=== PATIENT | male | born 1945 | race Caucasian/White ===

== ENCOUNTER 2024-10-01 21:52 | Emergency (ER) | payer MEDICARE, SELFPAY ==
[2024-10-01 22:00] VITALS: BP 181/99
[2024-10-01 22:21] LABS: Urine Albumin 4+ (Neg - Trace); Urine Bilirubin Negative (Negative); Urine Character Slightly Cloudy (Clear); Urine Color Red; Urine Glucose Negative (Negative); Urine Ketone Negative (Negative); Urine Leukocyte 1+ (Negative); Urine Nitrite Negative (Negative); Urine Occult Blood 4+ (Negative); Urine Urobilinogen Negative (Neg - 1+)
[2024-10-01 22:25] LABS: % Basophils 0.6 % (0-2); % Eosinophils 4.5 % (0-6); % Immature Granulocytes 0.2 % (0-0.5); % Lymphocytes 26.2 % (20.5-51.1); % Monocytes 10.8 % (1.7-9.3); % Neutrophils 57.7 % (42.2-75.2); Absolute Basophils 0.1 10^3/uL (0-0.2); Absolute Eosinophils 0.6 10^3/uL (0-0.7); Absolute Lymphocytes 3.2 10^3/uL (1.2-3.4); Absolute Monocytes 1.3 10^3/uL (0.1-0.6); Absolute Neutrophils 7.1 10^3/uL (1.4-6.5); Hemoglobin 13.9 g/dL (13.0-18.0); Mean Corp Hgb Conc. 33.9 g/dL (33.0-37.0); Mean Corpuscular Hgb 31.2 pg (27.0-31.0); Mean Corpuscular Volume 91.9 fL (80.0-94.0); Mean Platelet Volume 9.4 fL (7.4-10.4); Nucleated Red Blood Cells % 0 % (-); Platelet Count 297 10^3/uL (130-400); Red Blood Cell Count 4.46 10^6/uL (4.70-6.10); White Blood Cell Count 12.3 10^3/uL (4.8-10.8)
[2024-10-01 22:27] LABS: Urine Red Blood Cell >100 /HPF (0-2); Urine Squamous Cell 0-2 /LPF (Few)
[2024-10-01 22:28] LABS: Urine Bacteria Few (Negative); Urine White Cell 16-20 /HPF (0-5)
[2024-10-01 22:35] LABS: ALT (SGPT) 23 U/L (0-50); AST (SGOT) 22 U/L (17-59); Albumin 4.8 g/dl (3.5-5.0); Alkaline Phosphatase 72 U/L (38-126); Blood Urea Nitrogen 17 mg/dl (9-20); Calcium 9.4 mg/dl (8.4-10.2); Carbon Dioxide 22 mmol/L (22-30); Chloride 105 mmol/L (98-107); Glucose 99 mg/dl (70-99); Potassium 4.2 mmol/L (3.5-5.1); Sodium 138 mmol/L (135-145); Total Bilirubin 0.7 mg/dl (0.2-1.3); Total Protein 7.3 g/dl (6.3-8.2); eGFR > 60.00
[2024-10-02] MEDS: KEFLEX 500 MG PO (00:58)
--- NOTE | 2024-10-02 01:03 | ED.GENMED ---
History of Present Illness
General
Chief Complaint: Male Genito-Urinary Symptoms
Source: patient
Exam Limitations: none
Time Seen by Provider: 10/02/24 00:52
Nursing documentation reviewed up to this point in time: agreed with
History of Present Illness
History of Present Illness:
79-year-old male presenting to the emergency department with concerns of hematuria. There are some clots today otherwise was slightly red. Able to urinate here without issues. No pain point. Patient is requesting to leave prior to further
assessment by me. It was suggested that he potentially should start an antibiotic due to the white blood cells and bacteria in his urinalysis. He claims that he can follow-up closely urology. He was advised to return for any worsening symptoms.
Past History
Past History
ED Past Medical History: GERD and Hypercholesterolemia
ED Past Surgical History: Orthopedic and Other (Hernia repair)
Social History
Tobacco: Former smoker
Alcohol: Occasional
Living: with family
Review of Systems
Review of Systems
Allergies reviewed?: Yes
All Other Systems: ROS reviewed and negative except as documented in HPI and ROS
Phy Exam
Physical Exam
Physical Exam:
GENERAL: Alert , in no apparent distress
EYE: pupils equal and reactive
NECK: Supple, no significant adenopathy.
ENT: o/p clr, mmm.
CARDIAC: Regular rate and rhythm .
LUNGS: Clear breath sounds bilaterally, no acute respiratory distress, no wheezes/rales/rhonchi
ABDOMEN: Soft, without focal tenderness, no r/g, no cvat
NEUROLOGICAL: Alert and oriented, no focal neuro deficits
SKIN: Warm and dry, skin intact.
MUSCULOSKELETAL: No edema, well perfused.
PSYCH: Normal and appropriate interaction.
Course
Orders/Labs/Results
Orders:
Orders
10/01/24 22:08
CMP [Comprehensive Metabolic Panel] Urgent
Complete Blood Count/With Diff Urgent
Urinalysis Reflex To Culture Urgent
Date Specimen was Collected: 10/01/24
Time Specimen was Collected: 22:04
Urine Microscopic Reflex Cult Urgent
Urine Culture Urgent
[place] Source: U
Specimen Description:
Date Specimen was Collected: 10/01/24
Time Specimen was Collected: 22:04
10/02/24 00:56
Cephalexin Monohydrate [Keflex] 500 mg .ROUTE .[facility]
10/02/24 00:57
Cephalexin Monohydrate [Keflex] 500 mg PO NOW STA
Abnormal Lab Results
10/01/24
22:08
WBC 12.3 H 10^3/uL
(4.8-10.8)
RBC 4.46 L 10^6/uL
(4.70-6.10)
MCH 31.2 H pg
(27.0-31.0)
Absolute Neuts (auto) 7.1 H 10^3/uL
(1.4-6.5)
Absolute Monos (auto) 1.3 H 10^3/uL
(0.1-0.6)
Monocytes % 10.8 H %
(1.7-9.3)
Ur Occult Blood Reflex 4+ A
(Negative)
Leukocyte Esterase Rfl 1+ A
(Negative)
Urine RBC >100 A /HPF
(0-2)
Urine WBC (Reflex) 16-20 A /HPF
(0-5)
Urine Bacteria (Reflex) Few A
(Negative)
Urine Albumin (Reflex) 4+ A
(Neg - Trace)
10/01/24 22:08
10/01/24 22:08
Vital Signs
Initial and Last Documented VS:
Initial Vital Signs
Temp Pulse Resp BP Pulse Ox
98.2 F 75 20 181/99 98
10/01/24 22:00 10/01/24 22:00 10/01/24 22:00 10/01/24 22:00 10/01/24 22:00
Last Documented Vital Signs
Temp Pulse Resp BP Pulse Ox
98.2 F 75 20 181/99 98
10/01/24 22:00 10/01/24 22:00 10/01/24 22:00 10/01/24 22:00 10/01/24 22:00
MDM/Problems Addressed
MDM/Problems Addressed:
79-year-old male presenting to the emergency department today with concerns of hematuria. Resolving while here able to urinate well. Did notice some clots earlier today. No ongoing pain. Requesting to leave at this point. I feel like this is
reasonable. Patient was started on antibiotic as patient is possible. Will follow-up closely with urology. Return precautions given.
*Critical Care Note
Total Time (30-74mins, 75-104mins- exclusive of procedures): Not Applicable
ED Attending Note
-
Portions of this chart may have been created with voice recognition software.� Occasional wrong word or��sound alike� substitutions may have occurred due to the inherent limitations of voice recognition software.
Discharge Plan
Departure
Patient Disposition: Home (Routine Discharge)
Date of Disposition: 10/02/24
Time of Disposition: 01:03
Patient with high blood pressure during this ER visit?: No
Condition: Good
Covid-19: Not Applicable
Discharge Problem:
Hematuria
Instructions: Blood in the Urine (Hematuria), Adult (DC)
Prescriptions:
New
cephalexin 500 mg capsule
500 mg PO BID 7 Days Qty: 14 0RF
No Action
ibuprofen 200 MG tablet
400 mg PO PRN PRN (Reason: pain)
mupirocin 1 APPLIC ointment
1 applic intranasal BID Qty: 1 0RF
Patient Comments:
patient applied today 06/03 at 9:30, has been applying bid since 05/31/19 in am
cannabidiol [Epidiolex] 1 UNIT solution
1 unit PO PRN PRN (Reason: pain)
omeprazole 20 MG capsule,delayed release(DR/EC)
20 mg PO DAILY
Melatonin 3 mg Tablet Tab
3 mg PO PRN PRN (Reason: Sleep)
sennosides [senna] 1 TABLET tablet
2 tab PO BID 0RF
acetaminophen 325 MG tablet
650 mg PO Q4HWA 0RF
aspirin 325 MG tablet
325 mg PO DAILY Qty: 30 0RF
Rx Instructions:
4 weeks post prevent blood clots
magnesium hydroxide 30 ML suspension
30 ml PO DAILYPRN PRN (Reason: constipation) 0RF
bisacodyl [OneLAX Bisacodyl] 10 MG suppository
10 mg NM DAILYPRN PRN (Reason: gas pain) 0RF
docusate sodium 100 MG capsule
100 mg PO BID 0RF
alum-mag hydroxide-simeth [Mag-Al Plus] 30 ML suspension
30 ml PO Q4HPRN PRN (Reason: indigestion) 0RF
oxycodone 5 MG tablet
5 mg PO Q4HPRN PRN (Reason: mild pain) Qty: 30 0RF
Rx Instructions:
Sent to [facility]
Activity Restrictions/Additional Instructions:
You came to the emergency department today with concerns of difficulty with urination. You had some blood in your urine here potentially mild infection. Please start Keflex and otherwise follow-up closely with urology. Return for any worsening,
new or concerning symptoms.
Interventions
Interventions:
*General Assessment Last Done: 10/01/24 22:00
Discharge Date and Time
Print Language: COLOMBIAN
== END 2024-10-02 01:21 | disposition home or self-care (01) ==
LOC: EMR 21:52
PROVIDERS: Emergency Medicine; EMERGENCY PHYSICIAN Emergency Medicine; FAMILY PHYSICIAN Internal Medicine
DX: R31.9 Hematuria, unspecified (principal); K21.9 Gastro-esophageal reflux disease without esophagitis; E78.00 Pure hypercholesterolemia, unspecified; Z87.891 Personal history of nicotine dependence
CPT/HCPCS: 99283; 80053; 81003; 81015; 85025; 87086

== ENCOUNTER → 2024-10-25 08:46 | Outpatient (REF) | payer MEDICARE, SELFPAY | LOC: RAD 08:46 | PROVIDERS: ATTENDING PHYSICIAN Specialist; FAMILY PHYSICIAN Internal Medicine | DX: R31.0 Gross hematuria (principal) | CPT/HCPCS: 74178; Q9967 ==

== ENCOUNTER 2024-11-04 06:18 | Day surgery (SDC) | payer MEDICARE, SELFPAY ==
[2024-10-28 14:02] VITALS: BMI 25.4
[2024-11-04] VITALS (9 sets, daily range): BP systolic 108–165; BP diastolic 69–95; BMI 25.4
[2024-11-04] MEDS: CYSVIEW KIT 100 MG INTRAVES (09:02)
[2024-11-04] MEDS: NORMOSOL-R/PLASMALYTE-A 1000 IV (09:13)
[2024-11-04] MEDS: SYRINGE NON-PUMP 50 ML IRRIG ×2 (11:04→11:05)
[2024-11-04] MEDS: SYRINGE NON-PUMP 50 MG IRRIG ×2 (11:04→11:05)
[2024-11-04] MEDS: DILAUDID 0.5 MG IV (11:11)
[2024-11-04] MEDS: Pyridium 200 MG PO (11:15)
[2024-11-04] MEDS: DILAUDID 0.25 MG IV (11:28)
--- NOTE | 2024-11-04 11:33 | SUR.PHASEI ---
patient post op TURBT - arrived to pacu with CBI infusing - clear outflow. Pt BIG LAGOON - c/o of urge to void - ' severe'. Rodriguez and CBI explained as well as gemcitabine. At 1100 - Dr Esqueda at bedside. Gemcitabine verified and instilled, after CBI
stopped, Rodriguez bag suspended from IV pole. patient medicated with Dilaudid and pyridium - able to sleep while chemo dwells.
== END 2024-11-04 13:28 | disposition home or self-care (01) ==
LOC: SDS 06:18
PROVIDERS: ATTENDING PHYSICIAN Specialist; FAMILY PHYSICIAN Internal Medicine
DX: C67.9 Malignant neoplasm of bladder, unspecified (principal)
CPT/HCPCS: 52235; 51720; C9738; 88307; 36415; 93005; A9589; J9201

== ENCOUNTER 2024-11-04 16:50 | Emergency (ER) | payer MEDICARE, SELFPAY ==
[2024-11-04 17:01] VITALS: BP 133/73
[2024-11-04 17:50] VITALS: BMI 25.3
--- NOTE | 2024-11-04 17:55 | ED.GENMED ---
History of Present Illness
General
Chief Complaint: Urinary Symptoms
Source: patient
Time Seen by Provider: 11/04/24 17:48
History of Present Illness
History of Present Illness:
79-year-old male with past medical history of emphysema presents to the emergency department after he had cystoscopy done earlier this afternoon around 1:30 PM after experiencing hematuria within the last few weeks, has been unable to urinate and
while attempting to urinate noted significant pain/discomfort. Patient states that at time of my exam he is not in much pain or feels as if he has to urinate but states he feels as if he tried to go he would have sniffing and discomfort. Patient
states that he did have some retention previously which was related to clots but that once he was able to urinate a small clot he had no troubles urinating following.. Denies any fevers, chills, rigors
Past History
Past History
ED Past Medical History: GERD and Hypercholesterolemia
ED Past Surgical History: Orthopedic and Other (Hernia repair)
Social History
Tobacco: Former smoker
Alcohol: Occasional
Drug: None
Living: with family
Review of Systems
Review of Systems
All Other Systems: ROS reviewed and negative except as documented in HPI and ROS
Phy Exam
Physical Exam
Physical Exam:
GENERAL: Alert , in no apparent distress
EYE: clear conjunctiva b/l
HEAD: NCAT
ENT: o/p clr, mmm.
ABDOMEN: Soft, mild suprapubic tenderness but otherwise clear, no r/g, no cvat
NEUROLOGICAL: Alert and oriented
SKIN: Warm and dry, skin intact.
MUSCULOSKELETAL: No edema, well perfused.
PSYCH: Normal and appropriate interaction.
Scores
Heart Failure Risk
Heart Failure Risk Score: Not Applicable
Heart Score for Chest Pain Patients
STEMI patient?: Not applicable
Withdrawal Assessment of Alcohol
Withdrawal Assessment Completed?: Not applicable
Course
Orders/Labs/Results
Orders:
Orders
11/04/24 17:48
Bladder Scan- Treatment ONCE
Rodriguez Placement- Treatment ONCE
Reason for insertion: Acute Retention
11/04/24 17:52
0.9% Sodium Chloride 1000 ml [Nss] 1,000 ml IV BOLUS
11/04/24 17:58
Basic Metabolic Panel Urgent
Complete Blood Count/With Diff Urgent
11/04/24 18:02
diazePAM [Valium Injection] 2.5 mg IV NOW STA
11/04/24 18:38
Lidocaine/Epinephrine/Tetracai [Let Topical Anesthetic Gel] 3 ml .ROUTE .[facility]
11/04/24 18:39
Lidocaine/Epinephrine/Tetracai [Let Topical Anesthetic Gel] 3 ml TOPICAL NOW STA
11/04/24 18:53
Urinalysis Reflex To Culture Urgent
Date Specimen was Collected: 11/04/24
Time Specimen was Collected: 18:52
Urine Microscopic Reflex Cult Urgent
Urine Culture Urgent
[place] Source: U
Specimen Description:
Date Specimen was Collected: 11/04/24
Time Specimen was Collected: 18:52
Abnormal Lab Results
11/04/24 11/04/24
17:58 18:53
WBC 15.2 H 10^3/uL
(4.8-10.8)
RBC 4.49 L 10^6/uL
(4.70-6.10)
MCH 31.8 H pg
(27.0-31.0)
Absolute Neuts (auto) 14.2 H 10^3/uL
(1.4-6.5)
Absolute Lymphs (auto) 0.6 L 10^3/uL
(1.2-3.4)
Neutrophils % 93.5 H %
(42.2-75.2)
Lymphocytes % 3.9 L %
(20.5-51.1)
BUN 22 H mg/dl
(9-20)
Glucose 131 H mg/dl
(70-99)
Ur Occult Blood Reflex 4+ A
(Negative)
Urine Nitrite (Reflex) Positive A
(Negative)
Urine Bilirubin 2+ A
(Negative)
Urine Urobilinogen 2+ A
(Neg - 1+)
Urine RBC >100 A /HPF
(0-2)
Urine Bacteria (Reflex) Few A
(Negative)
Urine Albumin (Reflex) 2+ A
(Neg - Trace)
11/04/24 17:58
11/04/24 17:58
Vital Signs
Initial and Last Documented VS:
Initial Vital Signs
Temp Pulse Resp BP Pulse Ox
97.6 F 61 16 133/73 93
11/04/24 17:01 11/04/24 17:01 11/04/24 17:01 11/04/24 17:01 11/04/24 17:01
Last Documented Vital Signs
Temp Pulse Resp BP Pulse Ox
97.6 F 61 16 132/72 96
11/04/24 17:01 11/04/24 17:01 11/04/24 17:01 11/04/24 18:00 11/04/24 18:45
MDM/Problems Addressed
Differential Diagnosis Includes:
Postprocedural pain, urinary tract infection, bladder muscle spasm, retention
MDM/Problems Addressed:
79-year-old male presenting to the ER for evaluation of lower abdominal pain and discomfort while attempting to urinate, feels as if he is unable to urinate. Had a cystoscopy earlier this afternoon. Bladder scan shows only 71 mL of urine within
the bladder. Abdomen is otherwise somewhat soft. Will consult with urology. Disposition pending
*Pulse Oximetry
Patient hypoxic: no
*Critical Care Note
Total Time (30-74mins, 75-104mins- exclusive of procedures): Not Applicable
Patient Management
Discussion with other providers: Service Observer Chief
Escalation/DeEscalation of care consider admission/obs:
6 PM: Case discussed with urology, Dr. Grimm, who would still like us to place a Rodriguez catheter. Check labs, 2 and half milligrams of Valium IV for bladder muscle relaxation. As long as patient remains stable okay to discharge home on Ditropan 5
mg and 300 mg cefdinir. Recommends calling urology office on Thursday to follow-up with her Dheeraj.
ED Attending Note
-
Portions of this chart may have been created with voice recognition software.� Occasional wrong word or��sound alike� substitutions may have occurred due to the inherent limitations of voice recognition software.
Discharge Plan
Departure
Patient Disposition: Home (Routine Discharge)
Date of Disposition: 11/04/24
Time of Disposition: 18:40
Patient with high blood pressure during this ER visit?: No
Discharge Problem:
Dysuria
Instructions: How to Care for Your Rodriguez Catheter, Male
Prescriptions:
New
oxybutynin chloride 5 mg tablet
5 mg PO BID Qty: 10 0RF
cefdinir 300 mg capsule
300 mg PO BID 5 Days Qty: 10 0RF
No Action
ibuprofen 200 MG tablet
400 mg PO PRN PRN (Reason: pain)
omeprazole 20 MG capsule,delayed release(DR/EC)
20 mg PO DAILY
ascorbic acid (vitamin C) [Vitamin C] 500 mg Tablet
500 mg PO DAILY
cyanocobalamin (vitamin B-12) 1,000 mcg Tablet
1,000 mcg PO DAILY
cholecalciferol (vitamin D3) [Vitamin D3] 50 mcg (2,000 unit) Tablet
50 mcg PO DAILY
fluticasone propion-salmeterol 250-50 mcg/dose Blister With Device
1 inh INHALATION .2 TIMES A WEEK
benzonatate 100 mg Capsule
100 mg PO DAILY
atorvastatin [Lipitor] 20 mg Tablet
20 mg PO DAILY
Referrals:
Philip Esqueda MD [Active] - (Please call office Thursday morning for appointment)
Servando Mascorro MD [Family Provider] -
Interventions
Interventions:
*Risk Screen - Suicide Last Done: 11/04/24 17:04
*General Assessment Last Done: 11/04/24 17:53
*Neglect/Abuse Screening Last Done: 11/04/24 17:04
*ED- Fall Risk Assessment Last Done: 11/04/24 17:53
*ED COVID-19 Vaccine History Last Done: 11/04/24 17:53
*Nursing Disposition Last Done: 11/04/24 19:13
ED-Male Genitourinary Assessment Last Done: 11/04/24 17:51
Discharge Date and Time
Discharge Date/Time: 11/04/24 19:14
Print Language: TELUGU
[2024-11-04] MEDS: NSS 1000 IV (17:59)
[2024-11-04 18:00] VITALS: BP 132/72
[2024-11-04 18:12] LABS: % Basophils 0.1 % (0-2); % Immature Granulocytes 0.3 % (0-0.5); % Lymphocytes 3.9 % (20.5-51.1); % Monocytes 2.2 % (1.7-9.3); % Neutrophils 93.5 % (42.2-75.2); Absolute Lymphocytes 0.6 10^3/uL (1.2-3.4); Absolute Monocytes 0.3 10^3/uL (0.1-0.6); Absolute Neutrophils 14.2 10^3/uL (1.4-6.5); Hematocrit 41.9 % (39.0-52.0); Hemoglobin 14.3 g/dL (13.0-18.0); Mean Corp Hgb Conc. 34.1 g/dL (33.0-37.0); Mean Corpuscular Hgb 31.8 pg (27.0-31.0); Mean Corpuscular Volume 93.3 fL (80.0-94.0); Mean Platelet Volume 9.4 fL (7.4-10.4); Nucleated Red Blood Cells % 0 % (-); Platelet Count 289 10^3/uL (130-400); Red Blood Cell Count 4.49 10^6/uL (4.70-6.10); Red Cell Dist. Width 14.5 % (11.5-14.5); White Blood Cell Count 15.2 10^3/uL (4.8-10.8)
[2024-11-04 18:26] LABS: Blood Urea Nitrogen 22 mg/dl (9-20); Calcium 9.4 mg/dl (8.4-10.2); Carbon Dioxide 24 mmol/L (22-30); Chloride 103 mmol/L (98-107); Estimated Creatinine Clearance 40 ml/min; Glucose 131 mg/dl (70-99); Potassium 4.6 mmol/L (3.5-5.1); Sodium 138 mmol/L (135-145); eGFR 55.88
[2024-11-04] MEDS: LET TOPICAL ANESTHETIC GEL 3 ML TOPICAL (18:39)
[2024-11-04] MEDS: VALIUM INJECTION 2.5 MG IV (18:40)
[2024-11-04 19:00] LABS: Urine Albumin 2+ (Neg - Trace); Urine Bilirubin 2+ (Negative); Urine Character Slightly Cloudy (Clear); Urine Color Orange; Urine Glucose Negative (Negative); Urine Ketone Negative (Negative); Urine Leukocyte Negative (Negative); Urine Nitrite Positive (Negative); Urine Occult Blood 4+ (Negative); Urine Specific Gravity 1.015 (<1.030); Urine Urobilinogen 2+ (Neg - 1+)
[2024-11-04 19:08] LABS: Urine Bacteria Few (Negative); Urine Red Blood Cell >100 /HPF (0-2); Urine Squamous Cell None seen /LPF (Few); Urine White Cell 0-2 /HPF (0-5)
== END 2024-11-04 19:14 | disposition home or self-care (01) ==
LOC: EMR 16:50
PROVIDERS: Physician Assistant Medical; EMERGENCY PHYSICIAN Student in an Organized Health Care Education/Training Program; FAMILY PHYSICIAN Internal Medicine
DX: R30.0 Dysuria (principal); Z87.891 Personal history of nicotine dependence
CPT/HCPCS: 99284; 96374; 96361; 51798; 51702; 80048; 81003; 81015; 85025; 87086

== ENCOUNTER → 2025-03-03 09:55 | Outpatient (REF) | payer MEDICARE, SELFPAY ==
[2025-03-03 11:21] LABS: Hematocrit 41.3 % (39.0-52.0); Hemoglobin 13.8 g/dL (13.0-18.0); Mean Corp Hgb Conc. 33.4 g/dL (33.0-37.0); Mean Corpuscular Volume 94.7 fL (80.0-94.0); Nucleated Red Blood Cells % 0 % (-); Platelet Count 297 10^3/uL (130-400); Red Cell Dist. Width 14.6 % (11.5-14.5)
[2025-03-03 11:58] LABS: ALT (SGPT) 20 U/L (0-50); AST (SGOT) 21 U/L (17-59); Albumin 4.4 g/dl (3.5-5.0); Alkaline Phosphatase 60 U/L (38-126); Blood Urea Nitrogen 15 mg/dl (9-20); Calcium 9.4 mg/dl (8.4-10.2); Carbon Dioxide 28 mmol/L (22-30); Chloride 108 mmol/L (98-107); Glucose 98 mg/dl (70-99); HDL Cholesterol 61 mg/dl; LDL Cholesterol, Calculated 112 mg/dl; Magnesium 2.0 mg/dl (1.6-2.3); Potassium 4.6 mmol/L (3.5-5.1); Sodium 142 mmol/L (135-145); Total Protein 7.0 g/dl (6.3-8.2); Very Low Density Lipoprotein 12 mg/dl (0-30); eGFR > 60.00
[2025-03-03 12:12] LABS: Vitamin D, 25-OH*** 67.9 ng/mL (30-80)
[2025-03-03 12:25] LABS: PSA, Total - Screen 0.66 ng/ml (0.0-4.0); TSH 1.26 uIU/ml (0.47-4.68)
[2025-03-03 13:12] LABS: Vitamin B12 963 pg/ml (239-931)
== END ==
LOC: REG 09:55
PROVIDERS: ATTENDING PHYSICIAN Nurse Practitioner
DX: R25.2 Cramp and spasm (principal); J43.9 Emphysema, unspecified; E78.5 Hyperlipidemia, unspecified; K21.9 Gastro-esophageal reflux disease without esophagitis; E87.5 Hyperkalemia; E55.9 Vitamin D deficiency, unspecified; E53.8 Deficiency of other specified B group vitamins
CPT/HCPCS: 36415; 80053; 80061; 82306; 82607; 83735; 84443; 85025; G0103